=== PATIENT | female | born 1980 | race Caucasian/White ===

== ENCOUNTER 2018-05-14 | Emergency (ER) | payer BC | END 2018-05-14 01:33 | disposition home or self-care (01) | LOC: ED ==

== ENCOUNTER 2021-11-18 09:38 | Emergency (ER) | payer OTHER ==
[2021-11-18] MEDS ORDERED: BABY ASPIRIN 81 MG CHEW PO ONE (09:41)
--- NOTE | 2021-11-18 09:41 | ERPHSYRPT ---
- History of Present Illness Time Seen by Provider: 11/18/21 09:41 Historian: patient Exam Limitations: no limitations Physician History: This is a 41-year-old white female patient of Dr. Aragon who presents with 1 day history of epigastric and substernal centrally located burning with "flareups" of sharp pain in the substernal central chest radiating to the right shoulder. Symptoms began yesterday. She has no documented history of any coronary artery disease. Patient has had evaluations in the past with gallbladder ultrasounds and HIDA scans. She is never had upper endoscopy performed. Symptoms persisted throughout the evening yesterday and this morning. Therefore she sought evaluation in the outpatient clinic and they referred her to us for cardiac evaluation. Patient is not short of breath. She has had no vomiting symptoms. She has no fever or chills. She has no diarrhea. Timing/Duration: yesterday Activities at Onset: none Quality: burning, sharpness Location: substernal, central, epigastric Chest Pain Radiation: arm (Right shoulder and clavicle region) Severity of Pain-Max: mild Severity of Pain-Current: mild Modifying Factors: Improves With: nothing Associated Symptoms: denies symptoms Prior Chest Pain/Cardiac Workup: no prior cardiac workup Nitro Today/Relief: no nitro taken today Aspirin Treatment Today: 81 mg x 4, provided by ED Allergies/Adverse Reactions: No Known Drug Allergies Allergy (Verified 11/18/21 09:49) Home Medications: Simvastatin 20Mg [Zocor 20Mg] 1 ea DAILY 11/18/21 [History] Hx Influenza Vaccination/Date Given: No Hx Pneumococcal Vaccination/Date Given: No Travel Risk - International Travel Have you traveled outside of the country in past 3 weeks: No - Coronavirus Screening Are you exhibiting any of the following symptoms?: No Close contact with a COVID-19 positive Pt in past 14-21 Days: No - Review of Systems Constitutional: No Symptoms Eyes: No Symptoms Ears, Nose, & Throat: No Symptoms Respiratory: No Symptoms Cardiac: Chest Pain Abdominal/Gastrointestinal: No Symptoms Genitourinary Symptoms: No Symptoms Musculoskeletal: No Symptoms Skin: No Symptoms Neurological: No Symptoms Psychological: No Symptoms Endocrine: No Symptoms Hematologic/Lymphatic: No Symptoms Immunological/Allergic: No Symptoms All Other Systems: Reviewed and Negative - Past Medical History Pertinent Past Medical History: No - Past Surgical History Past Surgical History: Yes Female Surgical History: Tubal Ligation, Other Other Surgical History: Ablation, Neck Surgery - Social History Smoking Status: Never smoker Exposure to second hand smoke: No Drug Use: none Patient Lives Alone: No - Nursing Vital Signs Nursing Vital Signs: Initial Vital Signs Temperature 97.2 F 11/18/21 09:42 Pulse Rate 60 11/18/21 09:42 Respiratory Rate 16 11/18/21 09:42 Blood Pressure 122/88 11/18/21 09:42 O2 Sat by Pulse Oximetry 99 11/18/21 09:42 Pain Scale Pain Intensity 3 - Physical Exam General Appearance: no apparent distress, alert, anxiety, obese Eye Exam: PERRL/EOMI, eyes nml inspection Ears, Nose, Throat Exam: normal ENT inspection, moist mucous membranes Neck Exam: normal inspection, non-tender, supple, full range of motion Respiratory Exam: normal breath sounds, chest tenderness, lungs clear, airway intact, No respiratory distress Cardiovascular Exam: regular rate/rhythm, normal heart sounds, normal peripheral pulses Gastrointestinal/Abdomen Exam: soft, normal bowel sounds, tenderness (Epigastric (mild)), No guarding, No rebound Pelvic Exam: not done Rectal Exam: not done Back Exam: normal inspection, normal range of motion, No CVA tenderness, No vertebral tenderness Extremity Exam: normal inspection Neurologic Exam: alert, oriented x 3, 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 Care 11/18/21 09:42 Active EKG-ER Only STAT Care 11/18/21 09:41 Active IV Insertion STAT Care 11/18/21 09:41 Active Pulse Oximetry (ED) STAT Care 11/18/21 09:41 Active CHEST 1 VIEW (PORTABLE) Stat Exams 11/18/21 09:58 Completed CBC W DIFF Stat Lab 11/18/21 09:51 Completed CMP Stat Lab 11/18/21 09:51 Completed D-DIMER QUANTITATIVE Stat Lab 11/18/21 09:51 Completed NT PRO BNP Stat Lab 11/18/21 09:51 Completed PROTIME WITH INR Stat Lab 11/18/21 09:51 Completed TROPONIN Q4H Lab 11/18/21 09:51 Completed TROPONIN Q4H Lab 11/18/21 13:45 Ordered TROPONIN Q4H Lab 11/18/21 17:45 Ordered Medication Summary Discontinued Medications Generic Name Dose Route Start Last Admin Trade Name Freq PRN Reason Stop Dose Admin Al Hydrox/Mg Hydrox/Simethicone Confirm 11/18/21 10:38 Mag Hydrox/Al Hydrox/Simeth 30 Ml Udcup Administered 11/18/21 10:39 Dose 30 ml .ROUTE .STK-MED ONE Aspirin 324 mg 11/18/21 09:41 11/18/21 09:57 Aspirin 81 Mg Tab.Chew PO 11/18/21 09:42 324 mg STAT ONE Administration Lidocaine HCl Confirm 11/18/21 10:38 Lidocaine Hcl 2% Viscous 15 Ml Udcup Administered 11/18/21 10:39 Dose 15 ml .ROUTE .STK-MED ONE Magnesium Hydroxide 45 ml 11/18/21 10:34 11/18/21 10:39 Mag Hydrx/Alum Hyd/Simeth/Lido 45 Ml Bottle PO 11/18/21 10:35 45 ml STAT ONE Administration Lab/Rad Data: Laboratory Result Diagrams 11/18/21 09:51 11/18/21 09:51 Laboratory Results 11/18/21 11/18/21 11/18/21 Range/Units 09:51 09:51 09:51 WBC (4.0-10.5) x10^3/uL RBC (4.1-5.4) x10^6/uL Hgb (12.0-16.0) g/dL Hct (35-47) % MCV (78-100) fL MCH (26-32) pg MCHC (32-36) g/dL RDW (11.5-14.0) % Plt Count (150-450) x10^3/uL MPV (7.5-11.0) fL Gran % (36.0-66.0) % Immature Gran % (Auto) (0.00-0.4) % Nucleat RBC Rel Count (0.00-0.1) % Eos # (Auto) (0-0.5) x10^3/uL Immature Gran # (Auto) (0.00-0.03) x10^3u/L Absolute Lymphs (auto) (1.0-4.6) x10^3/uL Absolute Monos (auto) (0.0-1.3) x10^3/uL Absolute Nucleated RBC (0.00-0.01) x10^3u/L Lymphocytes % (24.0-44.0) % Monocytes % (0.0-12.0) % Eosinophils % (0.00-5.0) % Basophils % (0.0-0.4) % Absolute Granulocytes (1.4-6.9) x10^3/uL Basophils # (0-0.4) x10^3/uL PT 10.5 (9.4-12.5) SECONDS INR 0.99 (0.8-3.0) D-Dimer 0.39 (0.0-0.50) mg/L Sodium (137-145) mmol/L Potassium (3.5-5.1) mmol/L Chloride (98-107) mmol/L Carbon Dioxide (22-30) mmol/L Anion Gap (5-15) MEQ/L BUN (7-17) mg/dL Creatinine (0.52-1.04) mg/dL Estimated GFR ML/MIN Glucose (74-106) mg/dL Calcium (8.4-10.2) mg/dL Total Bilirubin (0.2-1.3) mg/dL AST (14-36) U/L ALT (0-35) U/L Alkaline Phosphatase (38-126) U/L Troponin I < 0.012 (0.000-0.034) ng/mL NT-Pro-B Natriuret Pep (0-450) pg/mL Serum Total Protein (6.3-8.2) g/dL Albumin (3.5-5.0) g/dL Influenza Type A Ag NEGATIVE (NEGATIVE) Influenza Type B Ag NEGATIVE (NEGATIVE) RSV (PCR) NEGATIVE (Negative) SARS-CoV-2 (PCR) NEGATIVE (NEGATIVE) 11/18/21 11/18/21 Range/Units 09:51 09:51 WBC 11.2 H (4.0-10.5) x10^3/uL RBC 4.48 (4.1-5.4) x10^6/uL Hgb 12.8 (12.0-16.0) g/dL Hct 39.8 (35-47) % MCV 88.8 (78-100) fL MCH 28.6 (26-32) pg MCHC 32.2 (32-36) g/dL RDW 12.9 (11.5-14.0) % Plt Count 228 (150-450) x10^3/uL MPV 9.9 (7.5-11.0) fL Gran % 70.3 H (36.0-66.0) % Immature Gran % (Auto) 0.8 H (0.00-0.4) % Nucleat RBC Rel Count 0.0 (0.00-0.1) % Eos # (Auto) 0.24 (0-0.5) x10^3/uL Immature Gran # (Auto) 0.09 H (0.00-0.03) x10^3u/L Absolute Lymphs (auto) 2.46 (1.0-4.6) x10^3/uL Absolute Monos (auto) 0.50 (0.0-1.3) x10^3/uL Absolute Nucleated RBC 0.00 (0.00-0.01) x10^3u/L Lymphocytes % 21.9 L (24.0-44.0) % Monocytes % 4.5 (0.0-12.0) % Eosinophils % 2.1 (0.00-5.0) % Basophils % 0.4 (0.0-0.4) % Absolute Granulocytes 7.90 H (1.4-6.9) x10^3/uL Basophils # 0.04 (0-0.4) x10^3/uL PT (9.4-12.5) SECONDS INR (0.8-3.0) D-Dimer (0.0-0.50) mg/L Sodium 139 (137-145) mmol/L Potassium 4.0 (3.5-5.1) mmol/L Chloride 103 (98-107) mmol/L Carbon Dioxide 26 (22-30) mmol/L Anion Gap 13.7 (5-15) MEQ/L BUN 14 (7-17) mg/dL Creatinine 0.76 (0.52-1.04) mg/dL Estimated GFR > 60.0 ML/MIN Glucose 92 (74-106) mg/dL Calcium 9.1 (8.4-10.2) mg/dL Total Bilirubin 0.50 (0.2-1.3) mg/dL AST 31 (14-36) U/L ALT 37 H (0-35) U/L Alkaline Phosphatase 81 (38-126) U/L Troponin I (0.000-0.034) ng/mL NT-Pro-B Natriuret Pep 138 (0-450) pg/mL Serum Total Protein 7.4 (6.3-8.2) g/dL Albumin 4.5 (3.5-5.0) g/dL Influenza Type A Ag (NEGATIVE) Influenza Type B Ag (NEGATIVE) RSV (PCR) (Negative) SARS-CoV-2 (PCR) (NEGATIVE) - Progress Progress: improved, re-examined Air Movement: good Progress Note: 11/18/21 10:34 Chest x-ray shows no acute cardiopulmonary process. Blood Culture(s) Obtained: No Antibiotics given: No Counseled pt/family regarding: lab results, diagnosis, need for follow-up, rad results - Departure Departure Disposition: Home Clinical Impression: Epigastric pain, Non-cardiac chest pain Condition: Stable Critical Care Time: No Referrals: KATRIN ARAGON MD [Primary Care Provider] - Follow up/PCP as directed Additional Instructions: Avoid fatty greasy spicy foods. Follow-up with Dr. Aragon in his office. Call to make arrangements for further evaluation and management including possible repeat ultrasound of gallbladder and HIDA scan as well as possible upper endoscopy. Prescriptions: Famotidine 20 mg [Pepcid 20 MG] 20 mg PO DAILY #10 tablet
[2021-11-18 09:59] LABS: Basophil (Absolute #) 0.04 x10^3/uL (0-0.4); Eosinophil % 2.1 % (0.00-5.0); Eosinophil (Absolute #) 0.24 x10^3/uL (0-0.5); Hematocrit 39.8 % (35-47); Hemoglobin 12.8 g/dL (12.0-16.0); Lymphocyte (Absolute #) 2.46 x10^3/uL (1.0-4.6); Lymphocytes % 21.9 % (24.0-44.0); Mean Cell Volume 88.8 fL (78-100); Mean Corpuscular Hemoglobin 28.6 pg (26-32); Mean Corpuscular Hgb Concent. 32.2 g/dL (32-36); Mean Platelet Volume 9.9 fL (7.5-11.0); Monocytes % 4.5 % (0.0-12.0); Neutrophil % 70.3 % (36.0-66.0); Platelet Count 228 x10^3/uL (150-450); Red Blood Count 4.48 x10^6/uL (4.1-5.4); Red Cell Distribution Width 12.9 % (11.5-14.0); White Blood Count 11.2 x10^3/uL (4.0-10.5)
--- NOTE | 2021-11-18 10:11 | XRAY ---
Indication: Chest pain. Comparison: None Portable chest demonstrates normal heart and lungs. Bony thorax intact with incidental lower cervical fusion hardware.
[2021-11-18 10:12] LABS: D-DIMER QUANTITATIVE 0.39 mg/L (0.0-0.50); INR 0.99 (0.8-3.0); PROTIME 10.5 SECONDS (9.4-12.5)
[2021-11-18 10:20] LABS: ALBUMIN 4.5 g/dL (3.5-5.0); ALKALINE PHOSPHATASE 81 U/L (38-126); ANION GAP 13.7 MEQ/L (5-15); BLOOD UREA NITROGEN 14 mg/dL (7-17); CHLORIDE 103 mmol/L (98-107); Calcium 9.1 mg/dL (8.4-10.2); Carbon Dioxide 26 mmol/L (22-30); Creatinine 1 0.76 mg/dL (0.52-1.04); EST GLOMERULAR FILTRATION RATE > 60.0 ML/MIN; Glucose 92 mg/dL (74-106); NT PRO BNP 138 pg/mL (0-450); SGOT/AST 31 U/L (14-36); SGPT/ALT 37 U/L (0-35); SODIUM 139 mmol/L (137-145); Total Protein 7.4 g/dL (6.3-8.2)
[2021-11-18] MEDS ORDERED: GI COCKTAIL 45 ML (Maalox/Lidocaine) PO ONE (10:34)
[2021-11-18 10:36] LABS: INFLUENZA A NEGATIVE (NEGATIVE); INFLUENZA B NEGATIVE (NEGATIVE); RESPIRATORY SYNCTIAL VIRUS NEGATIVE (Negative); SARS-CoV-2 Xpert Express NEGATIVE (NEGATIVE)
[2021-11-18] MEDS ORDERED: MAALOX ES 30 ML UNIT DOSE ONE (10:38)
[2021-11-18] MEDS ORDERED: XYLOCAINE VISCOUS 2% 15 ML CUP ONE (10:38)
[2021-11-18 11:30] VITALS: BP 117/72; PULSE 88; O2SAT 97
== END 2021-11-18 11:31 | disposition home or self-care (01) ==
LOC: ED 09:38
DX: R10.13 Epigastric pain (principal); R07.89 Other chest pain; Z79.899 Other long term (current) drug therapy
CPT/HCPCS: 0241U; 36000; 36415; 71045; 80053; 83880; 84484; 85025; 85379; 85610; 93005; 93041; 94760; 99284; A9270-GY